=== PATIENT | male | born 1990 | race Caucasian/White ===

== ENCOUNTER 2019-01-15 17:34 | Emergency (ER) | payer OTHER ==
[~2019-01-15] VITALS: Ht 182.9 cm; Wt 74.8 kg
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
--- NOTE | 2019-01-15 17:40 | NUR ---
ER Dr. Toro at bedside examining patient.
[2019-01-15 17:44] VITALS: BP_SYST 128
--- NOTE | 2019-01-15 17:50 | NUR ---
Note carmen in EDM - 01/15/19 at 1802 by KEIRA Written and verbal consent obtained from patient for blood alcohol, name and verified by patient. Disinfected patient's skin with iodine that did not contain alcohol or other volatile organic compound. Collected the blood from the subject named by venipuncture, in the presence of Officer Susana # [id number]. Used a sterile, dry hypodermic needle and dry vacuum blood collection. Two dry vacuum blood collection was supplied by the officer named above. Withdrew a specimen of blood from the left arm of the subject named above. Inverted both blood tube several times to ensure that the preservative and anticoagulant were thoroughly mixed in the blood specimen. I initialed both blood tube label for identification. The labeled blood tubes was handed directly to the Officer named above. The blood tubes stopper remained in place while I had possession of the blood tubes. The Officer placed tubes into envelope and sealed it in my presence. Envelope initialed by myself and Officer named above. Patient tolerated well, bandage applied, and bleeding controlled.
[2019-01-15 18:00] VITALS: BP_SYST 132
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
== END 2019-01-15 18:00 ==
LOC: SED 17:34
DX: F10.129 Alcohol abuse with intoxication, unspecified (principal); Z04.1 Encounter for examination and observation following transport accident; V47.5XXA Car driver injured in collision with fixed or stationary object in traffic accident, initial encounter; Y93.89 Activity, other specified; Y92.410 Unspecified street and highway as the place of occurrence of the external cause; Y99.8 Other external cause status
CPT/HCPCS: 99283